=== PATIENT | female | born 1980 | race Caucasian/White ===

== ENCOUNTER 2018-11-10 19:56 | Emergency (ER) | payer OTHER ==
[2018-11-10] MEDS ORDERED: [UNRECOGNIZED DRUG - OTHER] IM ONE (19:57)
[2018-11-10] MEDS ORDERED: HEPATITIS A VIRUS VACCINE/PF 1440 UNIT/1 ML IM ONE (19:58)
--- NOTE | 2018-11-10 19:59 | PDOC ---
Rapid Medical Evaluation Medical Evaluation: 11/10/18 19:58 I have performed a brief in-person evaluation of this patient. The patient presents with a chief complaint of: Here for travel vaccines. Traveling to [facility] in 2 days Pertinent physical exam findings:stable and well laura I have ordered the following:hepA and typhoid vaccines The patient will proceed to the ED for further evaluation. Discharge Disposition - Diagnosis Need for vaccination - Referrals - Patient Instructions - Post Discharge Activity
--- NOTE | 2018-11-10 20:07 | PDOC ---
History of Present Illness - General Chief Complaint: Pain Stated Complaint: ABD PAIN Time Seen by Provider: 11/10/18 19:59 - History of Present Illness Initial Comments: 11/10/18 20:06 38-year-old female with recent travel to [place] here for post exposure. Vaccinations from adventurous eating Past History - Past Medical History Allergies/Adverse Reactions: Allergies Allergy/AdvReac Type Severity Reaction Status Date / Time No Known Allergies Allergy Verified 11/10/18 20:05 - Suicide/Smoking/Psychosocial Hx Smoking History: Never smoked Information on smoking cessation initiated: No Hx Alcohol Use: No Drug/Substance Use Hx: No Review of Systems - Review of Systems ABD/GI: Yes: See HPI. No: Nausea, Vomiting *Physical Exam - Vital Signs Last Vital Signs Temp Pulse Resp BP Pulse Ox 98.3 F 71 20 137/93 99 11/10/18 20:02 11/10/18 20:02 11/10/18 20:02 11/10/18 20:02 11/10/18 20:02 - Physical Exam Comments: 11/10/18 20:06 HEAD: NC/AT EYES: Conjuntiva clear Ears: Canals and TM's normal NOSE: No d/c THROAT: Moist mucous membrances, oral pharanx clear, uvula midline NECK: Supple without adenopathy CARDIAC: S1 S2 LUNGS: CTA Full and Equal breath sounds ABDOMEN: Soft NT ND MS: Full ROM in all joints without edema NEUROLOGIC: No gross sensory or motor deficits, NVID SKIN: Normal color and temperature no lesions or rashes *DC/Admit/Observation/Transfer Diagnosis at time of Disposition: Vaccination infection - Discharge Dispostion Disposition: HOME Condition at time of disposition: Stable Decision to Admit order: No - Referrals - Patient Instructions - Post Discharge Activity
[2018-11-10 20:08] VITALS: BP 137/93; PULSE 71; TEMP 98.3; BMI 27.3
== END 2018-11-10 20:41 | disposition home or self-care (01) ==
LOC: JER 19:56
PROC: 3E033GC Introduction of Other Therapeutic Substance into Peripheral Vein, Percutaneous Approach (ICD-10-PCS; principal; 2018-11-10)
DX: Z23 Encounter for immunization (principal)
CPT/HCPCS: 90632; 99281-25

== ENCOUNTER 2020-02-12 11:06 | Emergency (ER) | payer OTHER | END 2020-02-12 12:05 | disposition home or self-care (01) | LOC: JVIRT 11:06 | DX: Z11.59 Encounter for screening for other viral diseases (principal) | CPT/HCPCS: C9803; G2012-GT; U0003 ==

== ENCOUNTER 2020-05-28 19:24 | Emergency (ER) | payer BC | END 2020-05-28 20:20 | disposition home or self-care (01) | LOC: JVIRT 19:24 | DX: R51.9 Headache, unspecified (principal); Z20.822 Contact with and (suspected) exposure to COVID-19 | CPT/HCPCS: C9803; G2251-GT; U0003 ==

== ENCOUNTER 2020-07-11 08:59 | Emergency (ER) | payer BC, OTHER | END 2020-07-11 09:15 | disposition home or self-care (01) | LOC: JVIRT 08:59 | DX: Z11.52 Encounter for screening for COVID-19 (principal) | CPT/HCPCS: G2251-GT; Q3014-GT ==

== ENCOUNTER 2020-07-23 11:06 | Emergency (ER) | payer BC, OTHER ==
[2020-07-24 08:08] LABS: SARS-CoV-2 NAA Not Detected (Not Detected)
== END 2020-07-23 11:12 | disposition home or self-care (01) ==
LOC: JVIRT 11:06
DX: Z11.52 Encounter for screening for COVID-19 (principal)
CPT/HCPCS: C9803; G2251-GT; U0003; U0005

== ENCOUNTER 2021-03-17 09:34 | Emergency (ER) | payer OTHER ==
[2021-03-18 21:09] LABS: SARS-CoV-2 NAA Not Detected (Not Detected)
== END 2021-03-17 13:37 | disposition home or self-care (01) ==
LOC: JVIRT 09:34
DX: Z20.822 Contact with and (suspected) exposure to COVID-19 (principal)
CPT/HCPCS: C9803; Q3014-GT; U0003; U0005